=== PATIENT | male | born 1960 | race Hispanic/Latino ===

== ENCOUNTER 2023-02-14 12:38 | Inpatient (IN) | payer SELFPAY ==
[~2023-02-14] VITALS: Ht 170.2 cm; Wt 77.1 kg
[~2023-02-14 12:38] MED LIST: KEFLEX500 MG PO
[2023-02-14 13:29] LABS: BASOPHILS % 0.2 % (0.0-1.0); EOSINOPHILS % 0.1 % (0.0-6.0); HEMATOCRIT 36.3 % (38.2-49.6); HEMOGLOBIN 13.3 g/dL (14.0-18.0); LYMPHOCYTES % 10.8 % (18.0-39.1); MEAN CORPUSCULAR HGB CONC 36.6 g/dL (31-35); MEAN CORPUSCULAR VOLUME 87.3 fL (81-99); MONOCYTES # (AUTO) 0.3 (0.2-0.8); NEUTROPHILS # (AUTO) 7.9 (2.1-6.9); PLATELET COUNT 92 x10e3/uL (140-360); RED BLOOD COUNT 4.16 x10e6/uL (4.3-5.7); RED CELL DISTRIBUTION WIDTH 11.8 % (11.7-14.4)
[2023-02-14] MEDS ORDERED: ONDANSETRON HCL INJ 2MG/ML 2ML 2 MG/ML VIAL IV STA (13:37)
[2023-02-14] MEDS ORDERED: SODIUM CHLORIDE 0.9% 1000ML 1,000 ML IV STA ×2 (13:37→15:27)
[2023-02-14 13:55] LABS: ALBUMIN/GLOBULIN RATIO 0.8 (0.8-2.0); ANION GAP 19.1 mmol/L (8-16); CALCIUM 8.2 mg/dL (8.4-10.2); CREATININE, SERUM 2.4 mg/dL (0.72-1.25); POTASSIUM 4.1 mmol/L (3.5-5.1)
[2023-02-14 14:43] LABS: LYMPHOCYTES % (MANUAL) 6 % (19-48); MONOCYTES % (MANUAL) 5 % (3.4-9.0); NEUTROPHILS % (MANUAL) 89 % (40-74); PLATELET ESTIMATE SLIGHTLY DECREASED; PLATELET MORPHOLOGY COMMENT NORMAL; RBC MORPHOLOGY COMMENT NORMAL
[2023-02-14] MEDS ORDERED: LACTATED RINGER'S 1,000 ML IV ONE (15:30)
[2023-02-14] MEDS ORDERED: LACTATED RINGER'S 1,000 ML ONE (15:40)
[2023-02-14] MEDS ORDERED: BENZONATATE 100 MG CAP PO PRN (15:45)
[2023-02-14] MEDS ORDERED: ONDANSETRON HCL INJ 2MG/ML 2ML 2 MG/ML VIAL IV PRN (15:45)
[2023-02-14] MEDS ORDERED: POTASSIUM CHLORIDE 20 MEQ TAB CR PO PRN (15:45)
[2023-02-14] MEDS ORDERED: DEXTROSE 5% 1,000 ML IV SCH (15:45)
[2023-02-14] MEDS ORDERED: HYDRALAZINE HCL 20 MG/ML VIAL IV PRN (15:45)
[2023-02-14] MEDS ORDERED: ALBUTEROL/IPRATROPIUM 3 ML NEB NEB PRN (15:45)
[2023-02-14] MEDS ORDERED: SIMETHICONE 80 MG CHEW PO PRN (15:45)
[2023-02-14] MEDS ORDERED: ACETAMINOPHEN 325 MG TAB PO PRN (15:45)
[2023-02-14] MEDS ORDERED: LIDOCAINE 4% PATCH TP PRN (15:45)
[2023-02-14] MEDS ORDERED: DEXTROSE 50% SYRINGE 50 ML IV PRN ×2 (15:45→16:00)
[2023-02-14] MEDS ORDERED: DIPHENHYDRAMINE HCL 25 MG CAP PO PRN (15:45)
[2023-02-14] MEDS ORDERED: MELATONIN 5 MG TABLET PO PRN (15:45)
[2023-02-14 16:04] LABS: ABG HCO3 19 mmol/L (22-26); ABG PCO2 32 mmHg (35-45); ABG PH 7.39 (7.35-7.45); ABG PO2 73 mmHg (80-105); ABG TCO2 20
[2023-02-14 16:08] LABS: CLARITY,URINE SL CLOUDY (CLEAR); COLOR,URINE YELLOW (YELLOW); LEUKOCYTE ESTERASE ,URINE NEGATIVE (NEGATIVE); NITRITE,URINE NEGATIVE (NEGATIVE)
[2023-02-14 16:09] LABS: KETONES,URINE 1+ (NEGATIVE); PROTEIN,URINE DIPSTICK 2+ (NEGATIVE); URINE UROBILINOGEN 1 mg/dL (0.2 - 1)
[2023-02-14 16:22] LABS: AMORPHOUS SEDIMENT,URINE MODERATE (FEW); BACTERIA,URINE MODERATE /HPF; WBC,URINE (MAN) 0-5 /HPF (0-5)
[2023-02-14] MEDS: INSULIN LISPRO 100 UNIT/1 ML 3ML VIAL SQ SCH ×2 (16:30→21:12)
[2023-02-14] MEDS ORDERED: SUCRALFATE 1 GM/10 ML SUSP NG SCH (16:30)
[2023-02-14 18:28] LABS: CALCIUM 7.5 mg/dL (8.4-10.2); CREATININE, SERUM 1.92 mg/dL (0.72-1.25)
[2023-02-14 19:17] VITALS: PULSE 107; RESP 18; O2SAT 99
[2023-02-14] MEDS: ENOXAPARIN SOD INJ 40 MG/0.4 ML SYR SC SCH (21:11)
[2023-02-14 22:57] VITALS: BP 127/77; PULSE 127; RESP 20; TEMP 99.9; O2SAT 100
[2023-02-14 23:07] VITALS: BP 127/77; PULSE 127; RESP 20; TEMP 99.9; O2SAT 100
[2023-02-14] MEDS: METOCLOPRAMIDE HCL 10 MG/2ML VIAL IV SCH (23:34)
[2023-02-15] VITALS (11 sets, daily range): BP systolic 89–105; BP diastolic 53–72; PULSE 98–111; RESP 16–20; TEMP 98.1–99.7; O2SAT 93–97
[2023-02-15 00:40] LABS: AMYLASE 34 U/L (25-125); LIPASE 34 U/L (8-78)
[2023-02-15] MEDS ORDERED: LACTATED RINGER'S 1,000 ML INJ ONE (02:45)
[2023-02-15] MEDS ORDERED: LACTATED RINGER'S 1,000 ML INJ SCH (02:45)
[2023-02-15 05:06] LABS: BASOPHILS % 0.7 % (0.0-1.0); EOSINOPHILS % 0.2 % (0.0-6.0); HEMATOCRIT 30.6 % (38.2-49.6); LYMPHOCYTES # (AUTO) 1.1 (1.0-3.2); LYMPHOCYTES % 17.1 % (18.0-39.1); MEAN CORPUSCULAR HEMOGLOBIN 32.1 pg (28-32); MEAN CORPUSCULAR HGB CONC 35.9 g/dL (31-35); MEAN CORPUSCULAR VOLUME 89.2 fL (81-99); MONOCYTES # (AUTO) 0.2 (0.2-0.8); MONOCYTES % 3.8 % (4.4-11.3); NEUTROPHILS # (AUTO) 4.7 (2.1-6.9); NEUTROPHILS % 77.2 % (38.7-80.0); PLATELET COUNT 81 x10e3/uL (140-360); RED BLOOD COUNT 3.43 x10e6/uL (4.3-5.7); RED CELL DISTRIBUTION WIDTH 11.7 % (11.7-14.4)
[2023-02-15 05:25] LABS: ALBUMIN 2.4 g/dL (3.5-5.0); ALBUMIN/GLOBULIN RATIO 0.8 (0.8-2.0); ANION GAP 13.9 mmol/L (8-16); CALCIUM 7.5 mg/dL (8.4-10.2); CREATININE, SERUM 1.92 mg/dL (0.72-1.25); POTASSIUM 3.9 mmol/L (3.5-5.1)
[2023-02-15 05:52] LABS: MAGNESIUM 1.7 MG/DL (1.3-2.1)
[2023-02-15] MEDS: METOCLOPRAMIDE HCL 10 MG/2ML VIAL IV SCH ×4 (06:11→22:56)
[2023-02-15 06:12] LABS: THYROID STIMULATING HORMONE 1.734 uIU/mL (0.350-4.940)
[2023-02-15] MEDS: INSULIN LISPRO 100 UNIT/1 ML 3ML VIAL SQ SCH ×4 (08:59→21:00)
[2023-02-15] MEDS: PANTOPRAZOLE SOD 40 MG TABEC PO SCH (09:00)
[2023-02-15] MEDS: SUCRALFATE 1 GM TAB PO SCH ×4 (09:00→21:11)
[2023-02-15] MEDS: DOCUSATE SODIUM 100 MG CAP PO PRN (09:01)
[2023-02-15 11:54] LABS: EOSINOPHILS % (MANUAL) 1 % (0-7); LYMPHOCYTES % (MANUAL) 7 % (19-48); MONOCYTES % (MANUAL) 3 % (3.4-9.0); NEUTROPHILS % (MANUAL) 89 % (40-74)
[2023-02-15 11:55] LABS: PLATELET ESTIMATE MODERATELY DECREASED; PLATELET MORPHOLOGY COMMENT NORMAL; RBC MORPHOLOGY COMMENT NORMAL
[2023-02-15] MEDS: SODIUM CHLORIDE 0.9% 1000ML 1,000 ML IV SCH (15:02)
[2023-02-15] MEDS: ENOXAPARIN SOD INJ 40 MG/0.4 ML SYR SC SCH (17:02)
[2023-02-15] MEDS: INSULIN GLARGINE 100 UNITS/ML VIAL SQ SCH (21:35)
[2023-02-16] VITALS (7 sets, daily range): BP systolic 91–100; BP diastolic 59–62; PULSE 87–100; RESP 16–20; TEMP 97.9–98.7; O2SAT 96–99
[2023-02-16] LABS: % IRON SATURATION 26 % (15-50); IRON 32 ug/dL (65-175); TOTAL IRON BINDING CAPACITY 122 ug/dL (261-478); TRANSFERRIN 87 mg/dL (174-364)
[2023-02-16] MEDS: METOCLOPRAMIDE HCL 10 MG/2ML VIAL IV SCH ×4 (05:12→23:31)
[2023-02-16] MEDS: INSULIN LISPRO 100 UNIT/1 ML 3ML VIAL SQ SCH ×7 (07:30→21:45)
[2023-02-16] MEDS: SUCRALFATE 1 GM TAB PO SCH ×4 (09:23→21:33)
[2023-02-16] MEDS: PANTOPRAZOLE SOD 40 MG TABEC PO SCH (09:23)
[2023-02-16] MEDS: SODIUM CHLORIDE 0.9% 1000ML 1,000 ML IV SCH ×2 (10:51→21:56)
[2023-02-16 11:58] LABS: ANION GAP 11.5 mmol/L (8-16); CALCIUM 7.2 mg/dL (8.4-10.2); CREATININE, SERUM 1.76 mg/dL (0.72-1.25); POTASSIUM 3.5 mmol/L (3.5-5.1)
[2023-02-16] MEDS ORDERED: ONDANSETRON HCL 4 MG ORAL DISINTEGRATING TAB PO PRN (13:15)
[2023-02-16] MEDS: ENOXAPARIN SOD INJ 40 MG/0.4 ML SYR SC SCH (18:08)
[2023-02-16] MEDS: INSULIN GLARGINE 100 UNITS/ML VIAL SQ SCH (21:44)
[2023-02-16] MEDS: DOCUSATE SODIUM 100 MG CAP PO PRN (21:55)
[2023-02-17] VITALS (7 sets, daily range): BP systolic 82–131; BP diastolic 56–75; PULSE 80–94; RESP 18–19; TEMP 97.8–98.5; O2SAT 95–100
[2023-02-17] MEDS ORDERED: BISACODYL 5 MG TAB EC PO ONE (05:15)
[2023-02-17 05:29] LABS: BASOPHILS % 0.3 % (0.0-1.0); EOSINOPHILS % 0.7 % (0.0-6.0); HEMATOCRIT 26.3 % (38.2-49.6); HEMOGLOBIN 9.3 g/dL (14.0-18.0); LYMPHOCYTES # (AUTO) 1.9 (1.0-3.2); LYMPHOCYTES % 32.4 % (18.0-39.1); MEAN CORPUSCULAR HEMOGLOBIN 31.5 pg (28-32); MEAN CORPUSCULAR HGB CONC 35.4 g/dL (31-35); MEAN CORPUSCULAR VOLUME 89.2 fL (81-99); MONOCYTES # (AUTO) 0.4 (0.2-0.8); MONOCYTES % 6.2 % (4.4-11.3); NEUTROPHILS # (AUTO) 3.5 (2.1-6.9); NEUTROPHILS % 59.9 % (38.7-80.0); PLATELET COUNT 98 x10e3/uL (140-360); RED BLOOD COUNT 2.95 x10e6/uL (4.3-5.7)
[2023-02-17] MEDS: METOCLOPRAMIDE HCL 10 MG/2ML VIAL IV SCH ×4 (05:59→23:57)
[2023-02-17 06:10] LABS: ANION GAP 11.3 mmol/L (8-16); CALCIUM 7.1 mg/dL (8.4-10.2); CREATININE, SERUM 1.43 mg/dL (0.72-1.25); POTASSIUM 3.3 mmol/L (3.5-5.1)
[2023-02-17] MEDS: INSULIN LISPRO 100 UNIT/1 ML 3ML VIAL SQ SCH ×7 (07:30→23:27)
[2023-02-17 09:27] LABS: BAND NEUTROPHILS % (MANUAL) 1 %; LYMPHOCYTES % (MANUAL) 17 % (19-48); MONOCYTES % (MANUAL) 4 % (3.4-9.0); NEUTROPHILS % (MANUAL) 76 % (40-74)
[2023-02-17 09:28] LABS: PLATELET ESTIMATE MODERATELY DECREASED; PLATELET MORPHOLOGY COMMENT NORMAL; RBC MORPHOLOGY COMMENT NORMAL
[2023-02-17] MEDS: PANTOPRAZOLE SOD 40 MG TABEC PO SCH (09:45)
[2023-02-17] MEDS: IRON SUCROSE 100 MG in SODIUM CHLORIDE 0.9% 100 ML IV SCH (09:45)
[2023-02-17] MEDS: SUCRALFATE 1 GM TAB PO SCH ×4 (09:45→23:24)
[2023-02-17] MEDS ORDERED: PANTOPRAZOLE SO40 MG PO (11:32)
[2023-02-17] MEDS ORDERED: LACTATED RINGER'S 1,000 ML INJ ONE (11:45)
[2023-02-17] MEDS: SODIUM CHLORIDE 0.9% 1000ML 1,000 ML IV SCH ×2 (12:17→23:28)
[2023-02-17 17:50] LABS: CALCIUM 7.4 mg/dL (8.4-10.2); CREATININE, SERUM 1.2 mg/dL (0.72-1.25)
[2023-02-17] MEDS ORDERED: SODIUM CHLORIDE 0.9% 500ML 500 ML IV ONE (19:15)
[2023-02-17] MEDS: INSULIN GLARGINE 100 UNITS/ML VIAL SQ SCH (23:26)
[2023-02-18] VITALS (7 sets, daily range): BP systolic 99–109; BP diastolic 64–71; PULSE 75–101; RESP 17–18; TEMP 97.4–98.6; O2SAT 97–100
[2023-02-18] MEDS: METOCLOPRAMIDE HCL 10 MG/2ML VIAL IV SCH ×3 (06:24→17:09)
[2023-02-18 07:32] LABS: ANION GAP 10.9 mmol/L (8-16); CALCIUM 7.3 mg/dL (8.4-10.2); CREATININE, SERUM 1.15 mg/dL (0.72-1.25); POTASSIUM 3.9 mmol/L (3.5-5.1)
[2023-02-18] MEDS: PANTOPRAZOLE SOD 40 MG TABEC PO SCH (08:30)
[2023-02-18] MEDS: INSULIN LISPRO 100 UNIT/1 ML 3ML VIAL SQ SCH ×6 (08:30→16:30)
[2023-02-18] MEDS: IRON SUCROSE 100 MG in SODIUM CHLORIDE 0.9% 100 ML IV SCH (08:31)
[2023-02-18] MEDS: SUCRALFATE 1 GM TAB PO SCH ×3 (08:31→17:09)
[2023-02-18] MEDS: SODIUM CHLORIDE 0.9% 1000ML 1,000 ML IV SCH ×2 (09:44→17:30)
[2023-02-18] MEDS ORDERED: SODIUM CHLORIDE 0.9% 500ML 500 ML IV ONE (14:30)
[2023-02-18] MEDS ORDERED: HUMULIN 70100 UNIT/3 SQ ×2 (17:16→17:17)
[2023-02-18] MEDS ORDERED: INSULIN GLARGINE 100 UNITS/ML VIAL SQ SCH (21:00)
== END 2023-02-18 18:29 | disposition home or self-care (01) | DRG 392 ==
LOC: ER 12:45 → ERHOLD 15:53 → MED/SURG 22:04
PROVIDERS: ADMIT Internal Medicine; ATTEND Internal Medicine
DX: A08.4 Viral intestinal infection, unspecified (principal); N17.9 Acute kidney failure, unspecified; E87.1 Hypo-osmolality and hyponatremia; E86.0 Dehydration; D69.6 Thrombocytopenia, unspecified; E11.65 Type 2 diabetes mellitus with hyperglycemia; K57.90 Diverticulosis of intestine, part unspecified, without perforation or abscess without bleeding; I95.9 Hypotension, unspecified; E11.40 Type 2 diabetes mellitus with diabetic neuropathy, unspecified; D64.9 Anemia, unspecified; E61.1 Iron deficiency; R63.4 Abnormal weight loss; Z83.3 Family history of diabetes mellitus; Z82.49 Family history of ischemic heart disease and other diseases of the circulatory system; Z20.822 Contact with and (suspected) exposure to COVID-19; Z68.26 Body mass index [BMI] 26.0-26.9, adult
CPT/HCPCS: 36415; 36600; 71045; 74176; 76705; 80048; 80053; 80061; 81001; 82150; 82550; 82607; 82746; 82805; 82948; 83036; 83540; 83690; 83735; 84295; 84439; 84443; 84466; 84484; 85025; 85045; 93005; 94799; 99284; J1650; J1756; J1815; J2405; J2765; J7030; J7040; J7050; J7070; Q0162